=== PATIENT | female | born 1990 | race African-American/Black ===

== ENCOUNTER 2016-12-11 12:48 | Emergency (ER) | payer OTHER, SELFPAY ==
[2016-12-11 16:14] LABS: ALBUMIN 3.9 GM/DL (3.2-5.2); ALBUMIN/GLOBULIN RATIO 0.89 (1.00-1.93); ALKALINE PHOSPHATASE 58 U/L (45-117); ALT/SGPT 16 U/L (12-78); ANION GAP 11 MEQ/L (8-16); AST/SGOT 10 U/L (15-37); BILIRUBIN,DIRECT < 0.1 MG/DL (0.0-0.2); BILIRUBIN,TOTAL 0.3 MG/DL (0.2-1.0); BLOOD UREA NITROGEN 8 MG/DL (7-18); CALCIUM LEVEL 9.4 MG/DL (8.5-10.1); CARBON DIOXIDE LEVEL 26 MEQ/L (21-32); CHLORIDE LEVEL 103 MEQ/L (98-107); CREATININE FOR GFR 0.58 MG/DL (0.55-1.02); GLOMERULAR FILTRATION RATE > 60.0 (>60); GLUCOSE, FASTING 86 MG/DL (70-105); POTASSIUM SERUM 3.8 MEQ/L (3.5-5.1); SODIUM LEVEL 140 MEQ/L (136-145); TOTAL PROTEIN 8.3 GM/DL (6.4-8.2)
[2016-12-11 16:43] LABS: BASO % 0.2 % (0.0-1.0); EOS % 0.4 % (0.0-3.0); LARGE UNSTAINED CELL # 0.1 K/mm3 (0.0-0.4); LARGE UNSTAINED CELL % 1.4 % (0.0-4.0); LYMPH # 1.8 K/mm3 (1.5-6.5); LYMPH % 18.5 % (24.0-44.0); MEAN CORPUSCULAR HEMOGLOBIN 31.4 pg (27.0-33.0); MEAN CORPUSCULAR HGB CONC 34.4 g/dl (32.0-36.5); MEAN CORPUSCULAR VOLUME 91.4 fl (80.0-96.0); MONO # 0.4 K/mm3 (0.0-0.8); NEUTROPHILS # 7.4 K/mm3 (1.8-7.7); NEUTROPHILS % 75.5 % (36.0-66.0); PLATELET COUNT, AUTOMATED 193 k/mm3 (150-450); RED CELL DISTRIBUTION WIDTH 11.3 % (11.5-14.5); WHITE BLOOD COUNT 9.8 K/mm3 (4.0-10.0)
--- NOTE | 2016-12-11 17:52 | REP ---
NON-OB PELVIC ULTRASOUND: HISTORY: Right lower quadrant pain. The uterus is normal in echogenicity and size. The uterus measures 4.3 cm in transverse x 3.7 cm in AP x 8 cm in cephalocaudal dimensions. The endometrium measures 3.8 mm. The right ovary measures 2.5 x 1.3 x 2.3 cm. The left ovary measures 2.4 x 2.8 x 2.6 cm. A hemorrhagic cyst is present in the left ovary. This measures 2.2 x 1.5 x 1.9 cm. A small amount of free fluid is present in the right adnexal region. IMPRESSION: 1. 2.2 cm hemorrhagic cyst in the left ovary. 2. There is a small amount of free fluid in the right adnexal region. Signed by Corona Gonzalez MD 12/11/2016 06:05 P
--- NOTE | 2016-12-11 18:05 | EDDOCDS ---
Nurse's Notes [facility] Name: Katia Mckeon Age: 26 yrs Sex: Female : 1990 Arrival Date: 12/11/2016 Time: 12:48 Bed I5 / M5 Private MD: NO PRIMARY PHYSICIAN, . Diagnosis: Other ovarian cysts-left, hemorrhagic, 2.2 cm Presentation: 12/11 12:52 Presenting complaint: Patient states: Right sided abdominal pain for 2-3 days. Risk dwg factors: the patient reports no vaginal bleeding. Adult Sepsis Screening: The patient does not have new or worsening altered mentation. Patient's respiratory rate is less than 22. Systolic blood pressure is greater than 100. Patient has a qSOFA score of 0- Negative Sepsis Screen. Suicide/Homicide risk assessment- the patient denies having any suicidal and/or homicidal ideations and does not present with any other emotional, behavioral or mental health complaints. 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 Transition of care: patient was not received from another setting of care. 12:52 Acuity: ELVA Level 3 dwg 12:52 Method Of Arrival: Walkin/Carried/Asstd dwg Triage Assessment: 12:53 General: Appears in no apparent distress. Pain: Pain currently is 5 out of 10 on a pain dwg scale. Pt Declines HIV testing. 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 none - PMHx: none; - PSHx: none; - Social history: Smoking status: Patient states was never smoker of tobacco. No barriers to communication noted, The patient speaks fluent Bulgarian. - Family history: Not pertinent. - : The pt / caregiver states he / she is not on anticoagulants. Home medication list is obtained from the patient. - Exposure Risk Screening:: None identified. Screenin:01 Screening information is obtained from the patient. Fall risk: No risks identified. kc3 Assistance ADL's: requires no assistance with activities of daily living. Abuse/DV Screen: The patient / caregiver reports he/she is: not in a situation that causes fear, pain or injury. Nutritional screening: No deficits noted. Advance Directives: Currently, there is no health care proxy. home support is adequate. Assessment: 16:21 Adult Sepsis Screening: The patient does not have new or worsening altered mentation. dsf Patient's respiratory rate is less than 22. Systolic blood pressure is greater than 100. Patient has a qSOFA score of 0- Negative Sepsis Screen. General: Appears in no apparent distress, comfortable, Behavior is appropriate for age, cooperative. Pain: Location: right lower quadrant Pain currently is 7 out of 10 on a pain scale. Quality of pain is described as sharp. Neurological: Level of Consciousness is awake, alert, Oriented to person, place, time. Cardiovascular: Capillary refill < 3 seconds Heart tones S1 S2 present. Respiratory: Airway is patent Respiratory effort is even, unlabored, Respiratory pattern is regular, symmetrical, Breath sounds are clear bilaterally. GI: Abdomen is flat, Bowel sounds present X 4 quads. Abd is soft X 4 quads Abd is tender to palpation in right lower quadrant Denies nausea. Derm: Skin is pink, warm & dry. 16:34 Reassessment: IV infusing - no infiltration noted.. kcs 18:01 General: Appears in no apparent distress, comfortable, Behavior is appropriate for age, kc3 cooperative. Pain: Location: abdomen. Neurological: Level of Consciousness is awake, alert, obeys commands, Oriented to person, place, time. Respiratory: Respiratory effort is even, unlabored. Derm: Skin is pink, warm & dry. Vital Signs: 12:50 BP 106 / 69; Pulse 108; Resp 16; Temp 99.4(O); Pulse Ox 100% ; Weight 61.23 kg (M); cmb Height 66 in. (167.64 cm) (M); Pain 5/10; 16:33 BP 110 / 74; Pulse 98; Resp 18; Temp 98.8; Pulse Ox 99% ; Pain 4/10; jam1 18:01 BP 94 / 61; Pulse 61; Resp 18; Temp 99.2(O); Pulse Ox 100% on R/A; Pain 7/10; kc3 12:50 Body Mass Index 21.79 (61.23 kg, 167.64 cm) cmb Vitals: 12:50 Log In Time: December 11, 2016 at 12:48. cmb ED Course: 12:49 Patient visited by Linda Rico. cmb 12:49 Patient moved to Waiting cmb 12:50 NO PRIMARY PHYSICIAN, . is Private Physician. cmb 12:52 Patient moved to Pre RCE cmb 12:53 Triage Initiated dwg 14:58 Herbert Talbot,YESSENIA is Primary Nurse. mb9 14:58 Patient moved to I5 / mb9 14:59 Cally West FNP is [facility]. le 15:07 Patient visited by Cally West FNP. le 15:07 Patient visited by Cally West FNP. le 15:10 Inserted saline lock: 20 gauge in left antecubital area The patient tolerated the kcs procedure well. 15:47 Basic Metabolic Profile Sent. kcs 15:47 CBC with Diff Sent. kcs 15:47 Lipase Sent. kcs 15:47 Urinalysis Sent. kcs 16:13 Assist provider with pelvic exam: Set up pelvic tray. Specimens sent to lab. Performed dsf by Cally CARABALLO Patient tolerated well. 16:19 GC & Chlamydia Amplification Sent. dsf 16:19 Wet Prep Sent. dsf 16:22 Patient visited by Enriqueta Rojas RN. dsf 17:23 Patient visited by Ivette Guzmán RN. kc3 17:48 Addy Ortez MD is Referral Physician. le 17:48 [facility] Payment Agreement was scanned into [employer] and attached to record. ks16 17:54 Patient name changed from Winta\S\\S\Mebrahti\S\ to Winta\S\ \S\Mebrahti. EDMS 18:02 The patient / caregiver is instructed regarding the plan of care and ED course. kc3 Administered Medications: 15:55 Drug: NS 0.9% 1000 ml [sodium chloride 0.9 % intravenous solution] Route: IV; Rate: 100 kcs mL/hr; Site: left antecubital; Order Results: Lab Order: Basic Metabolic Profile; SPEC'M 12/11/16 15:43 Test: GLUCOSE, FASTING; Value: 86; Range: 70-105; Units: MG/DL; Status: F Test: BLOOD UREA NITROGEN; Value: 8; Range: 7-18; Units: MG/DL; Status: F Test: CREATININE FOR GFR; Value: 0.58; Range: 0.55-1.02; Units: MG/DL; Status: F Test: GLOMERULAR FILTRATION RATE; Value: > 60.0; Range: >60; Status: F Test: SODIUM LEVEL; Value: 140; Range: 136-145; Units: MEQ/L; Status: F Test: POTASSIUM SERUM; Value: 3.8; Range: 3.5-5.1; Units: MEQ/L; Status: F Test: CHLORIDE LEVEL; Value: 103; Range: 98-107; Units: MEQ/L; Status: F Test: CARBON DIOXIDE LEVEL; Value: 26; Range: 21-32; Units: MEQ/L; Status: F Test: ANION GAP; Value: 11; Range: 8-16; Units: MEQ/L; Status: F Test: CALCIUM LEVEL; Value: 9.4; Range: 8.5-10.1; Units: MG/DL; Status: F Test Note: ; Units are mL/min/1.73 m2 Chronic Kidney Disease Staging per NKF: Stage I & II GFR >=60 Normal to Mildly Decreased Stage III GFR 30-59 Moderately Decreased Stage IV GFR 15-29 Severely Decreased Stage V GFR <15 Very Little GFR Left ESRD GFR <15 on PLATE DEVELOPER Lab Order: CBC with Diff; SPEC'M 12/11/16 15:43 Test: WHITE BLOOD COUNT; Value: 9.8; Range: 4.0-10.0; Units: K/mm3; Status: F Test: RED BLOOD COUNT; Value: 4.11; Range: 4.00-5.40; Units: M/mm3; Status: F Test: HEMOGLOBIN; Value: 12.9; Range: 12.0-16.0; Units: g/dl; Status: F Test: HEMATOCRIT; Value: 37.6; Range: 36.0-47.0; Units: %; Status: F Test: MEAN CORPUSCULAR VOLUME; Value: 91.4; Range: 80.0-96.0; Units: fl; Status: F Test: MEAN CORPUSCULAR HEMOGLOBIN; Value: 31.4; Range: 27.0-33.0; Units: pg; Status: F Test: MEAN CORPUSCULAR HGB CONC; Value: 34.4; Range: 32.0-36.5; Units: g/dl; Status: F Test: RED CELL DISTRIBUTION WIDTH; Value: 11.3; Range: 11.5-14.5; Abnormal: Below low normal; Units: %; Status: F Test: PLATELET COUNT, AUTOMATED; Value: 193; Range: 150-450; Units: k/mm3; Status: F Test: NEUTROPHILS %; Value: 75.5; Range: 36.0-66.0; Abnormal: Above high normal; Units: %; Status: F Test: LYMPH %; Value: 18.5; Range: 24.0-44.0; Abnormal: Below low normal; Units: %; Status: F Test: MONO %; Value: 4.0; Range: 0.0-5.0; Units: %; Status: F Test: EOS %; Value: 0.4; Range: 0.0-3.0; Units: %; Status: F Test: BASO %; Value: 0.2; Range: 0.0-1.0; Units: %; Status: F Test: LARGE UNSTAINED CELL %; Value: 1.4; Range: 0.0-4.0; Units: %; Status: F Test: NEUTROPHILS #; Value: 7.4; Range: 1.8-7.7; Units: K/mm3; Status: F Test: LYMPH #; Value: 1.8; Range: 1.5-6.5; Units: K/mm3; Status: F Test: MONO #; Value: 0.4; Range: 0.0-0.8; Units: K/mm3; Status: F Test: EOS #; Value: 0.0; Range: 0.0-0.50; Units: K/mm3; Status: F Test: BASO #; Value: 0.0; Range: 0.0-0.2; Units: K/mm3; Status: F Test: LARGE UNSTAINED CELL #; Value: 0.1; Range: 0.0-0.4; Units: K/mm3; Status: F Lab Order: Lipase; SPEC'M 12/11/16 15:43 Test: LIPASE; Value: 102; Range: 73-393; Units: U/L; Status: F Lab Order: Liver Profile; SPEC'M 12/11/16 15:43 Test: AST/SGOT; Value: 10; Range: 15-37; Abnormal: Below low normal; Units: U/L; Status: F Test: ALT/SGPT; Value: 16; Range: 12-78; Units: U/L; Status: F Test: ALKALINE PHOSPHATASE; Value: 58; Range: 45-117; Units: U/L; Status: F Test: BILIRUBIN,TOTAL; Value: 0.3; Range: 0.2-1.0; Units: MG/DL; Status: F Test: BILIRUBIN,DIRECT; Value: < 0.1; Range: 0.0-0.2; Units: MG/DL; Status: F Test: TOTAL PROTEIN; Value: 8.3; Range: 6.4-8.2; Abnormal: Above high normal; Units: GM/DL; Status: F Test: ALBUMIN; Value: 3.9; Range: 3.2-5.2; Units: GM/DL; Status: F Test: ALBUMIN/GLOBULIN RATIO; Value: 0.89; Range: 1.00-1.93; Abnormal: Below low normal; Status: F Lab Order: Urinalysis; SPEC'M 12/11/16 15:43 Test: APPEARANCE, URINE; Value: CLEAR; Range: CLEAR; Status: F Test: COLOR, URINE; Value: YELLOW; Range: YELLOW; Status: F Test: PH,URINE; Value: 6.0; Range: 5.0-9.0; Units: UNITS; Status: F Test: SPECIFIC GRAVITY URINE AUTO; Value: 1.020; Range: 1.002-1.035; Status: F Test: PROTEIN, URINE AUTO; Value: NEGATIVE; Range: NEGATIVE; Units: mg/dL; Status: F Test: GLUCOSE, URINE (UA) AUTO; Value: NEGATIVE; Range: NEGATIVE; Units: mg/dL; Status: F Test: KETONE, URINE AUTO; Value: NEGATIVE; Range: NEGATIVE; Units: mg/dL; Status: F Test: UROBILINOGEN, URINE AUTO; Value: 0.2; Range: 0.0-2.0; Units: mg/dL; Status: F Test: BILIRUBIN, URINE AUTO; Value: NEGATIVE; Range: NEGATIVE; Status: F Test: NITRITE, URINE AUTO; Value: NEGATIVE; Range: NEGATIVE; Status: F Test: LEUKOCYTE ESTERASE, URINE AUTO; Value: NEGATIVE; Range: NEGATIVE; Status: F Test: BLOOD, URINE BLOOD; Value: NEGATIVE; Range: NEGATIVE; Status: F Test: WBC, URINE AUTO; Value: 2; Range: 0-3; Units: /HPF; Status: F Test: RBC, URINE AUTO; Value: 2; Range: 0-3; Units: /HPF; Status: F Test: BACTERIA, URINE AUTO; Value: 1+; Range: NEGATIVE; Abnormal: Above high normal; Status: F Test: SQUAMOUS EPITHELIAL CELL UR AU; Value: 1; Range: 0-6; Units: /HPF; Status: F Test: MUCUS, URINE; Value: MODERATE; Range: NEGATIVE; Status: F Test: HYALINE CAST, URINE AUTO; Value: 0; Range: 0-1; Units: /LPF; Status: F Lab Order: Wet Prep; SPEC'M 12/11/16 16:15 Test: WET PREP; Value: WET PREP RESULT; Status: F Test: WET PREP; Value: MANY EPITHELIAL CELLS PRESENT; Status: F Test: WET PREP; Value: FEW WBC; Status: F Test: WET PREP; Value: MANY LONG RODS PRESENT; Status: F Outcome: 17:48 Discharge ordered by Provider. le 18:02 Discharge Assessment: Patient awake, alert and oriented x 3. No cognitive and/or kc3 functional deficits noted. Patient verbalized understanding of disposition instructions. patient administered narcotics - no. The following High Risk Discharge criteria are identified: None. Condition: stable. Discharge instructions given to patient, Instructed on discharge instructions, follow up and referral plans. medication usage, Demonstrated understanding of instructions, medications, Pt was receptive of discharge instructions/ teaching. Prescriptions given X 2. Ultrasound Study completed. Property :Personal belongings accompany Pt. 18:04 Patient left the ED. kc3 Signatures: Dispatcher [employer] EDMS Naz Villela RN Magdi Roca RN RN dwg Murphy, Jane, DOCUMENTATION SUPERVISOR DOCUMENTATION SUPERVISOR [email or web address] Cally West, MANAGER OF BUSINESS MANAGER OF BUSINESS Enriqueta Linares RN RN Linda Mora Michael,RN RN [email or web address] Ivette Guzmán RN RN kc3 Katherin Velasco, Reg Reg ks16 Corrections: (The following items were deleted from the chart) 18:03 18:02 Discharge Assessment: Patient awake, alert and oriented x 3. No cognitive and/or kc3 functional deficits noted. Patient verbalized understanding of disposition instructions. patient administered narcotics - kc3 MTDD
--- NOTE | 2016-12-11 18:05 | EDDOCDS ---
Physician Documentation [facility] Name: Katia Mckeon Age: 26 yrs Sex: Female : 1990 Arrival Date: 12/11/2016 Time: 12:48 Bed I5 / M5 Private MD: NO PRIMARY PHYSICIAN, . Disposition: 12/11 17:53 Critical Care: Critical care not applicable. le Disposition: 12/11/16 17:48 Discharged to Home/Self Care. Impression: Other ovarian cysts - left, hemorrhagic, 2.2 cm. - Condition is Stable. - Discharge Instructions: Ovarian Cyst. - Prescriptions for Naprosyn 500 mg Oral Tablet - take 1 tablet by ORAL route 2 times per day take with food; 30 tablet. [place] 5- 325 mg Oral Tablet - take 1 tablet by ORAL route every 6 hours As needed MDD: 4 tabs; 20 tablet. - Medication Reconciliation, Local Pharmacy Hours form. - Follow up: Addy Ortez MD; When: Call to arrange an appointment; Reason: Recheck today's complaints, Continuance of care. - Problem is new. - Symptoms have improved. - Notes: Return to the ED for severe pain, fever, heavy vaginal bleeding, dizziness or any other concerns Historical: - Allergies: no known allergies; - Home Meds: 1. none - PMHx: none; - PSHx: none; - Social history: Smoking status: Patient states was never smoker of tobacco. No barriers to communication noted, The patient speaks fluent [place]. - Family history: Not pertinent. - : The pt / caregiver states he / she is not on anticoagulants. Home medication list is obtained from the patient. - Exposure Risk Screening:: None identified. 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 (167.64 cm) (M); Pain 5/10; 16:33 BP 110 / 74; Pulse 98; Resp 18; Temp 98.8; Pulse Ox 99% ; Pain 4/10; jam1 18:01 BP 94 / 61; Pulse 61; Resp 18; Temp 99.2(O); Pulse Ox 100% on R/A; Pain 7/10; kc3 12:50 Body Mass Index 21.79 (61.23 kg, 167.64 cm) cmb MDM: 15:14 NS 0.9% 1000 ml IV at 100 mL/hr continuous ordered. le 15:14 IV Saline Lock ordered. le 15:14 Undress patient appropriately for examination ordered. le 15:14 Set up pelvic ordered. le 15:15 Basic Metabolic Profile Ordered. EDMS 15:15 CBC with Diff Ordered. EDMS 15:15 Lipase Ordered. EDMS 15:15 Liver Profile Ordered. EDMS 15:15 Urinalysis Ordered. EDMS 15:15 Wet Prep Ordered. EDMS 15:15 GC & Chlamydia Amplification Ordered. EDMS 15:16 NOTHING BY MOUTH+DIET ordered. EDMS 16:18 -US Pelvic Non-Ob Complete Ordered. EDMS 16:18 DUPLEX SCAN LIMITED (DOPPLER)+US Ordered. EDMS 16:51 Transvaginal NON- US Ordered. EDMS 16:56 CBC with Diff Reviewed. le 16:56 Liver Profile Reviewed. le 16:56 Urinalysis Reviewed. le 16:56 Basic Metabolic Profile Reviewed. le 16:56 Lipase Reviewed. le 16:56 Wet Prep Reviewed. le 17:43 Financial registration complete. b 17:48 [facility] Payment Agreement was scanned into [employer] and attached to record. [email or web address] Administered Medications: 15:55 Drug: NS 0.9% 1000 ml [sodium chloride 0.9 % intravenous solution] Route: IV; Rate: 100 kcs mL/hr; Site: left antecubital; Signatures: Dispatcher [employer] Magdi Huddleston RN RN dwg Westcott, Lisa, FNP FACSIMILE OPERATOR Ivette Donovan RN RN [id number] Angy Velarde gjb Katherin Velasco, Reg Reg ks16 Naz Villela RN kcs The chart was reviewed and I authenticate all verbal orders and agree with the evaluation and treatment provided.Attachments: 17:48 [facility] Payment Agreement ks16 MTDD
--- NOTE | 2016-12-13 19:05 | EDDOCDS ---
Physician Documentation [facility] Name: Katia Mckeon Age: 26 yrs Sex: Female : 1990 Arrival Date: 12/11/2016 Time: 12:48 Bed I5 / M5 Private MD: NO PRIMARY PHYSICIAN, . Disposition: 12/11 17:53 Critical Care: Critical care not applicable. le Disposition: 12/11/16 17:48 Discharged to Home/Self Care. Impression: Other ovarian cysts - left, hemorrhagic, 2.2 cm. - Condition is Stable. - Discharge Instructions: Ovarian Cyst. - Prescriptions for Naprosyn 500 mg Oral Tablet - take 1 tablet by ORAL route 2 times per day take with food; 30 tablet. [place] 5- 325 mg Oral Tablet - take 1 tablet by ORAL route every 6 hours As needed MDD: 4 tabs; 20 tablet. - Medication Reconciliation, Local Pharmacy Hours form. - Follow up: Addy Ortez MD; When: Call to arrange an appointment; Reason: Recheck today's complaints, Continuance of care. - Problem is new. - Symptoms have improved. - Notes: Return to the ED for severe pain, fever, heavy vaginal bleeding, dizziness or any other concerns Historical: - Allergies: no known allergies; - Home Meds: 1. none - PMHx: none; - PSHx: none; - Social history: Smoking status: Patient states was never smoker of tobacco. No barriers to communication noted, The patient speaks fluent Tongan. - Family history: Not pertinent. - : The pt / caregiver states he / she is not on anticoagulants. Home medication list is obtained from the patient. - Exposure Risk Screening:: None identified. 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 (167.64 cm) (M); Pain 5/10; 16:33 BP 110 / 74; Pulse 98; Resp 18; Temp 98.8; Pulse Ox 99% ; Pain 4/10; jam1 18:01 BP 94 / 61; Pulse 61; Resp 18; Temp 99.2(O); Pulse Ox 100% on R/A; Pain 7/10; kc3 12:50 Body Mass Index 21.79 (61.23 kg, 167.64 cm) cmb MDM: 15:14 NS 0.9% 1000 ml IV at 100 mL/hr continuous ordered. le 15:14 IV Saline Lock ordered. le 15:14 Undress patient appropriately for examination ordered. le 15:14 Set up pelvic ordered. le 15:15 Basic Metabolic Profile Ordered. EDMS 15:15 CBC with Diff Ordered. EDMS 15:15 Lipase Ordered. EDMS 15:15 Liver Profile Ordered. EDMS 15:15 Urinalysis Ordered. EDMS 15:15 Wet Prep Ordered. EDMS 15:15 GC & Chlamydia Amplification Ordered. EDMS 15:16 NOTHING BY MOUTH+DIET ordered. EDMS 16:18 -US Pelvic Non-Ob Complete Ordered. EDMS 16:18 DUPLEX SCAN LIMITED (DOPPLER)+US Ordered. EDMS 16:51 Transvaginal NON- US Ordered. EDMS 16:56 CBC with Diff Reviewed. le 16:56 Liver Profile Reviewed. le 16:56 Urinalysis Reviewed. le 16:56 Basic Metabolic Profile Reviewed. le 16:56 Lipase Reviewed. le 16:56 Wet Prep Reviewed. le 17:43 Financial registration complete. gjb 17:48 [facility] Payment Agreement was scanned into [email or web address] and attached to record. 12/12 11:01 T-Sheet-- Draft Copy was scanned into [email or web address] and attached to record. gb Administered Medications: 12/11 15:55 Drug: NS 0.9% 1000 ml [sodium chloride 0.9 % intravenous solution] Route: IV; Rate: 100 kcs mL/hr; Site: left antecubital; Signatures: Dispatcher [employer] EDMagdi Parson RN RN dwg Barnhardt, Gloria, Reg Reg gb Cally West, ILYA CHIEF RESOURCE OFFICER Ivette Donovan RN RN kc3 Angy Velarde gjb Katherin Velasco, Reg Reg ks16 Naz Villela RN The chart was reviewed and I authenticate all verbal orders and agree with the evaluation and treatment provided.Attachments: 17:48 [facility] Payment Agreement 12/12 11:01 T-Sheet-- Draft Copy gb Chart Complete MTDD
--- NOTE | 2016-12-13 19:05 | EDDOCDS ---
Nurse's Notes [facility] Name: Katia Mckeon Age: 26 yrs Sex: Female : 1990 Arrival Date: 12/11/2016 Time: 12:48 Bed I5 / M5 Private MD: NO PRIMARY PHYSICIAN, . Diagnosis: Other ovarian cysts-left, hemorrhagic, 2.2 cm Presentation: 12/11 12:52 Presenting complaint: Patient states: Right sided abdominal pain for 2-3 days. Risk dwg factors: the patient reports no vaginal bleeding. Adult Sepsis Screening: The patient does not have new or worsening altered mentation. Patient's respiratory rate is less than 22. Systolic blood pressure is greater than 100. Patient has a qSOFA score of 0- Negative Sepsis Screen. Suicide/Homicide risk assessment- the patient denies having any suicidal and/or homicidal ideations and does not present with any other emotional, behavioral or mental health complaints. Status: Patient is not a customer service rep or dependent. Transition of care: patient was not received from another setting of care. 12:52 Acuity: ELVA Level 3 dwg 12:52 Method Of Arrival: Walkin/Carried/Asstd dwg Triage Assessment: 12:53 General: Appears in no apparent distress. Pain: Pain currently is 5 out of 10 on a pain dwg scale. Pt Declines HIV testing. 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 none - PMHx: none; - PSHx: none; - Social history: Smoking status: Patient states was never smoker of tobacco. No barriers to communication noted, The patient speaks fluent Kinyarwanda. - Family history: Not pertinent. - : The pt / caregiver states he / she is not on anticoagulants. Home medication list is obtained from the patient. - Exposure Risk Screening:: None identified. Screenin:01 Screening information is obtained from the patient. Fall risk: No risks identified. kc3 Assistance ADL's: requires no assistance with activities of daily living. Abuse/DV Screen: The patient / caregiver reports he/she is: not in a situation that causes fear, pain or injury. Nutritional screening: No deficits noted. Advance Directives: Currently, there is no health care proxy. home support is adequate. Assessment: 16:21 Adult Sepsis Screening: The patient does not have new or worsening altered mentation. dsf Patient's respiratory rate is less than 22. Systolic blood pressure is greater than 100. Patient has a qSOFA score of 0- Negative Sepsis Screen. General: Appears in no apparent distress, comfortable, Behavior is appropriate for age, cooperative. Pain: Location: right lower quadrant Pain currently is 7 out of 10 on a pain scale. Quality of pain is described as sharp. Neurological: Level of Consciousness is awake, alert, Oriented to person, place, time. Cardiovascular: Capillary refill < 3 seconds Heart tones S1 S2 present. Respiratory: Airway is patent Respiratory effort is even, unlabored, Respiratory pattern is regular, symmetrical, Breath sounds are clear bilaterally. GI: Abdomen is flat, Bowel sounds present X 4 quads. Abd is soft X 4 quads Abd is tender to palpation in right lower quadrant Denies nausea. Derm: Skin is pink, warm & dry. 16:34 Reassessment: IV infusing - no infiltration noted.. kcs 18:01 General: Appears in no apparent distress, comfortable, Behavior is appropriate for age, kc3 cooperative. Pain: Location: abdomen. Neurological: Level of Consciousness is awake, alert, obeys commands, Oriented to person, place, time. Respiratory: Respiratory effort is even, unlabored. Derm: Skin is pink, warm & dry. Vital Signs: 12:50 BP 106 / 69; Pulse 108; Resp 16; Temp 99.4(O); Pulse Ox 100% ; Weight 61.23 kg (M); cmb Height 66 in. (167.64 cm) (M); Pain 5/10; 16:33 BP 110 / 74; Pulse 98; Resp 18; Temp 98.8; Pulse Ox 99% ; Pain 4/10; jam1 18:01 BP 94 / 61; Pulse 61; Resp 18; Temp 99.2(O); Pulse Ox 100% on R/A; Pain 7/10; kc3 12:50 Body Mass Index 21.79 (61.23 kg, 167.64 cm) cmb Vitals: 12:50 Log In Time: December 11, 2016 at 12:48. cmb ED Course: 12:49 Patient visited by Linda Rico. cmb 12:49 Patient moved to Waiting cmb 12:50 NO PRIMARY PHYSICIAN, . is Private Physician. cmb 12:52 Patient moved to Pre RCE cmb 12:53 Triage Initiated dwg 14:58 Herbert Talbot,RN is Primary Nurse. mb9 14:58 Patient moved to I5 / M5 mb9 14:59 [facility] le 15:07 Patient visited by Cally West FNP. le 15:07 Patient visited by Cally West FNP. le 15:10 Inserted saline lock: 20 gauge in left antecubital area The patient tolerated the kcs procedure well. 15:47 Basic Metabolic Profile Sent. kcs 15:47 CBC with Diff Sent. kcs 15:47 Lipase Sent. kcs 15:47 Urinalysis Sent. kcs 16:13 Assist provider with pelvic exam: Set up pelvic tray. Specimens sent to lab. Performed dsf by Cally CARABALLO Patient tolerated well. 16:19 GC & Chlamydia Amplification Sent. dsf 16:19 Wet Prep Sent. dsf 16:22 Patient visited by Enriqueta Rojas,YESSENIA. dsf 17:23 Patient visited by Ivette Guzmán,YESSENIA. kc3 17:48 Addy Ortez MD is Referral Physician. le 17:48 [facility] Payment Agreement was scanned into ipDatatel and attached to record. ks16 17:54 Patient name changed from Winta\S\\S\Mebrahti\S\ to Winta\S\ \S\Mebrahti. EDMS 18:02 The patient / caregiver is instructed regarding the plan of care and ED course. kc3 18:22 -US Pelvic Non-Ob Complete Returned. EDMS 18:22 DUPLEX SCAN LIMITED (DOPPLER)+US Returned. EDMS 18:22 Transvaginal NON- US Returned. EDMS 12/12 11:01 T-Sheet-- Draft Copy was scanned into ipDatatel and attached to record. gb Administered Medications: 12/11 15:55 Drug: NS 0.9% 1000 ml [sodium chloride 0.9 % intravenous solution] Route: IV; Rate: 100 kcs mL/hr; Site: left antecubital; Order Results: Lab Order: Basic Metabolic Profile; SPEC'M 12/11/16 15:43 Test: GLUCOSE, FASTING; Value: 86; Range: 70-105; Units: MG/DL; Status: F Test: BLOOD UREA NITROGEN; Value: 8; Range: 7-18; Units: MG/DL; Status: F Test: CREATININE FOR GFR; Value: 0.58; Range: 0.55-1.02; Units: MG/DL; Status: F Test: GLOMERULAR FILTRATION RATE; Value: > 60.0; Range: >60; Status: F Test: SODIUM LEVEL; Value: 140; Range: 136-145; Units: MEQ/L; Status: F Test: POTASSIUM SERUM; Value: 3.8; Range: 3.5-5.1; Units: MEQ/L; Status: F Test: CHLORIDE LEVEL; Value: 103; Range: 98-107; Units: MEQ/L; Status: F Test: CARBON DIOXIDE LEVEL; Value: 26; Range: 21-32; Units: MEQ/L; Status: F Test: ANION GAP; Value: 11; Range: 8-16; Units: MEQ/L; Status: F Test: CALCIUM LEVEL; Value: 9.4; Range: 8.5-10.1; Units: MG/DL; Status: F Test Note: ; Units are mL/min/1.73 m2 Chronic Kidney Disease Staging per NKF: Stage I & II GFR >=60 Normal to Mildly Decreased Stage III GFR 30-59 Moderately Decreased Stage IV GFR 15-29 Severely Decreased Stage V GFR <15 Very Little GFR Left ESRD GFR <15 on SECURITY SHIFT MANAGER Lab Order: CBC with Diff; SPEC'M 12/11/16 15:43 Test: WHITE BLOOD COUNT; Value: 9.8; Range: 4.0-10.0; Units: K/mm3; Status: F Test: RED BLOOD COUNT; Value: 4.11; Range: 4.00-5.40; Units: M/mm3; Status: F Test: HEMOGLOBIN; Value: 12.9; Range: 12.0-16.0; Units: g/dl; Status: F Test: HEMATOCRIT; Value: 37.6; Range: 36.0-47.0; Units: %; Status: F Test: MEAN CORPUSCULAR VOLUME; Value: 91.4; Range: 80.0-96.0; Units: fl; Status: F Test: MEAN CORPUSCULAR HEMOGLOBIN; Value: 31.4; Range: 27.0-33.0; Units: pg; Status: F Test: MEAN CORPUSCULAR HGB CONC; Value: 34.4; Range: 32.0-36.5; Units: g/dl; Status: F Test: RED CELL DISTRIBUTION WIDTH; Value: 11.3; Range: 11.5-14.5; Abnormal: Below low normal; Units: %; Status: F Test: PLATELET COUNT, AUTOMATED; Value: 193; Range: 150-450; Units: k/mm3; Status: F Test: NEUTROPHILS %; Value: 75.5; Range: 36.0-66.0; Abnormal: Above high normal; Units: %; Status: F Test: LYMPH %; Value: 18.5; Range: 24.0-44.0; Abnormal: Below low normal; Units: %; Status: F Test: MONO %; Value: 4.0; Range: 0.0-5.0; Units: %; Status: F Test: EOS %; Value: 0.4; Range: 0.0-3.0; Units: %; Status: F Test: BASO %; Value: 0.2; Range: 0.0-1.0; Units: %; Status: F Test: LARGE UNSTAINED CELL %; Value: 1.4; Range: 0.0-4.0; Units: %; Status: F Test: NEUTROPHILS #; Value: 7.4; Range: 1.8-7.7; Units: K/mm3; Status: F Test: LYMPH #; Value: 1.8; Range: 1.5-6.5; Units: K/mm3; Status: F Test: MONO #; Value: 0.4; Range: 0.0-0.8; Units: K/mm3; Status: F Test: EOS #; Value: 0.0; Range: 0.0-0.50; Units: K/mm3; Status: F Test: BASO #; Value: 0.0; Range: 0.0-0.2; Units: K/mm3; Status: F Test: LARGE UNSTAINED CELL #; Value: 0.1; Range: 0.0-0.4; Units: K/mm3; Status: F Lab Order: Lipase; SPEC'M 12/11/16 15:43 Test: LIPASE; Value: 102; Range: 73-393; Units: U/L; Status: F Lab Order: Liver Profile; SPEC'M 12/11/16 15:43 Test: AST/SGOT; Value: 10; Range: 15-37; Abnormal: Below low normal; Units: U/L; Status: F Test: ALT/SGPT; Value: 16; Range: 12-78; Units: U/L; Status: F Test: ALKALINE PHOSPHATASE; Value: 58; Range: 45-117; Units: U/L; Status: F Test: BILIRUBIN,TOTAL; Value: 0.3; Range: 0.2-1.0; Units: MG/DL; Status: F Test: BILIRUBIN,DIRECT; Value: < 0.1; Range: 0.0-0.2; Units: MG/DL; Status: F Test: TOTAL PROTEIN; Value: 8.3; Range: 6.4-8.2; Abnormal: Above high normal; Units: GM/DL; Status: F Test: ALBUMIN; Value: 3.9; Range: 3.2-5.2; Units: GM/DL; Status: F Test: ALBUMIN/GLOBULIN RATIO; Value: 0.89; Range: 1.00-1.93; Abnormal: Below low normal; Status: F Lab Order: Urinalysis; SPEC'M 12/11/16 15:43 Test: APPEARANCE, URINE; Value: CLEAR; Range: CLEAR; Status: F Test: COLOR, URINE; Value: YELLOW; Range: YELLOW; Status: F Test: PH,URINE; Value: 6.0; Range: 5.0-9.0; Units: UNITS; Status: F Test: SPECIFIC GRAVITY URINE AUTO; Value: 1.020; Range: 1.002-1.035; Status: F Test: PROTEIN, URINE AUTO; Value: NEGATIVE; Range: NEGATIVE; Units: mg/dL; Status: F Test: GLUCOSE, URINE (UA) AUTO; Value: NEGATIVE; Range: NEGATIVE; Units: mg/dL; Status: F Test: KETONE, URINE AUTO; Value: NEGATIVE; Range: NEGATIVE; Units: mg/dL; Status: F Test: UROBILINOGEN, URINE AUTO; Value: 0.2; Range: 0.0-2.0; Units: mg/dL; Status: F Test: BILIRUBIN, URINE AUTO; Value: NEGATIVE; Range: NEGATIVE; Status: F Test: NITRITE, URINE AUTO; Value: NEGATIVE; Range: NEGATIVE; Status: F Test: LEUKOCYTE ESTERASE, URINE AUTO; Value: NEGATIVE; Range: NEGATIVE; Status: F Test: BLOOD, URINE BLOOD; Value: NEGATIVE; Range: NEGATIVE; Status: F Test: WBC, URINE AUTO; Value: 2; Range: 0-3; Units: /HPF; Status: F Test: RBC, URINE AUTO; Value: 2; Range: 0-3; Units: /HPF; Status: F Test: BACTERIA, URINE AUTO; Value: 1+; Range: NEGATIVE; Abnormal: Above high normal; Status: F Test: SQUAMOUS EPITHELIAL CELL UR AU; Value: 1; Range: 0-6; Units: /HPF; Status: F Test: MUCUS, URINE; Value: MODERATE; Range: NEGATIVE; Status: F Test: HYALINE CAST, URINE AUTO; Value: 0; Range: 0-1; Units: /LPF; Status: F Lab Order: Wet Prep; SPEC'M 12/11/16 16:15 Test: WET PREP; Value: WET PREP RESULT; Status: F Test: WET PREP; Value: MANY EPITHELIAL CELLS PRESENT; Status: F Test: WET PREP; Value: FEW WBC; Status: F Test: WET PREP; Value: MANY LONG RODS PRESENT; Status: F Lab Order: GC & Chlamydia Amplification; SPEC'M 12/11/16 16:15 Test: CHLAMYDIA DNA AMPLIFICATION; Value: NEGATIVE; Range: NEGATIVE; Status: F Test: GC DNA AMPLIFICATION; Value: NEGATIVE; Range: NEGATIVE; Status: F Radiology Order: -US Pelvic Non-Ob Complete Test: -US Pelvic Non-Ob Complete REASON FOR EXAMINATION: RLQ pain; NON-OB PELVIC ULTRASOUND:; ; HISTORY: Right lower quadrant pain.; ; The uterus is normal in echogenicity and size. The uterus measures 4.3 cm in; transverse x 3.7 cm in AP x 8 cm in cephalocaudal dimensions. The endometrium; measures 3.8 mm. The right ovary measures 2.5 x 1.3 x 2.3 cm. The left ovary; measures 2.4 x 2.8 x 2.6 cm. A hemorrhagic cyst is present in the left ovary.; This measures 2.2 x 1.5 x 1.9 cm. A small amount of free fluid is present in the; right adnexal region.; ; IMPRESSION:; ; 1. 2.2 cm hemorrhagic cyst in the left ovary.; ; 2. There is a small amount of free fluid in the right adnexal region.; ; ; Signed by; Corona Gonzalez MD 12/11/2016 06:05 P; Radiology Order: DUPLEX SCAN LIMITED (DOPPLER)+US Test: DUPLEX SCAN LIMITED (DOPPLER)+US REASON FOR EXAMINATION: Adnexal Pain r/o Torsion; NON-OB PELVIC ULTRASOUND:; ; HISTORY: Right lower quadrant pain.; ; The uterus is normal in echogenicity and size. The uterus measures 4.3 cm in; transverse x 3.7 cm in AP x 8 cm in cephalocaudal dimensions. The endometrium; measures 3.8 mm. The right ovary measures 2.5 x 1.3 x 2.3 cm. The left ovary; measures 2.4 x 2.8 x 2.6 cm. A hemorrhagic cyst is present in the left ovary.; This measures 2.2 x 1.5 x 1.9 cm. A small amount of free fluid is present in the; right adnexal region.; ; IMPRESSION:; ; 1. 2.2 cm hemorrhagic cyst in the left ovary.; ; 2. There is a small amount of free fluid in the right adnexal region.; ; ; Signed by; Corona Gonzalez MD 12/11/2016 06:05 P; Radiology Order: Transvaginal NON- US Test: Transvaginal NON- US REASON FOR EXAMINATION: EVAL UTERUS AND OVARIES; NON-OB PELVIC ULTRASOUND:; ; HISTORY: Right lower quadrant pain.; ; The uterus is normal in echogenicity and size. The uterus measures 4.3 cm in; transverse x 3.7 cm in AP x 8 cm in cephalocaudal dimensions. The endometrium; measures 3.8 mm. The right ovary measures 2.5 x 1.3 x 2.3 cm. The left ovary; measures 2.4 x 2.8 x 2.6 cm. A hemorrhagic cyst is present in the left ovary.; This measures 2.2 x 1.5 x 1.9 cm. A small amount of free fluid is present in the; right adnexal region.; ; IMPRESSION:; ; 1. 2.2 cm hemorrhagic cyst in the left ovary.; ; 2. There is a small amount of free fluid in the right adnexal region.; ; ; Signed by; Corona Gonzalez MD 12/11/2016 06:05 P; Outcome: 17:48 Discharge ordered by Provider. le 18:02 Discharge Assessment: Patient awake, alert and oriented x 3. No cognitive and/or kc3 functional deficits noted. Patient verbalized understanding of disposition instructions. patient administered narcotics - no. The following High Risk Discharge criteria are identified: None. Condition: stable. Discharge instructions given to patient, Instructed on discharge instructions, follow up and referral plans. medication usage, Demonstrated understanding of instructions, medications, Pt was receptive of discharge instructions/ teaching. Prescriptions given X 2. Ultrasound Study completed. Property :Personal belongings accompany Pt. 18:04 Patient left the ED. kc3 Signatures: Dispatcher [employer] EDMS Naz Villela, RN RN Magdi Tian RN RN dwAlaina Curtis, J2EE ANDROID DEVELOPER J2EE ANDROID DEVELOPER jam1 Janay Quevedo, Reg Reg gb Cally West, DIRECTOR OF SECURITIES AND REAL ESTATE DIRECTOR OF SECURITIES AND REAL ESTATE Enriqueta LinaresRN RN dsLinda Aguilar cmHerbert Soto,RN RN mb9 Ivette Guzmán RN RN kc3 Katherin Velasco, Reg Reg ks16 Corrections: (The following items were deleted from the chart) 18:03 18:02 Discharge Assessment: Patient awake, alert and oriented x 3. No cognitive and/or kc3 functional deficits noted. Patient verbalized understanding of disposition instructions. patient administered narcotics - kc3 Chart Complete MTDD
--- NOTE | 2016-12-13 19:06 | EDDOCDS ---
Physician Documentation [facility] Name: Katia Mckeon Age: 26 yrs Sex: Female : 1990 Arrival Date: 12/11/2016 Time: 12:48 Bed I5 / M5 Private MD: NO PRIMARY PHYSICIAN, . Disposition: 12/11 17:53 Critical Care: Critical care not applicable. le Disposition: 12/11/16 17:48 Discharged to Home/Self Care. Impression: Other ovarian cysts - left, hemorrhagic, 2.2 cm. - Condition is Stable. - Discharge Instructions: Ovarian Cyst. - Prescriptions for Naprosyn 500 mg Oral Tablet - take 1 tablet by ORAL route 2 times per day take with food; 30 tablet. Salome 5- 325 mg Oral Tablet - take 1 tablet by ORAL route every 6 hours As needed MDD: 4 tabs; 20 tablet. - Medication Reconciliation, Local Pharmacy Hours form. - Follow up: Addy Ortez MD; When: Call to arrange an appointment; Reason: Recheck today's complaints, Continuance of care. - Problem is new. - Symptoms have improved. - Notes: Return to the ED for severe pain, fever, heavy vaginal bleeding, dizziness or any other concerns Historical: - Allergies: no known allergies; - Home Meds: 1. none - PMHx: none; - PSHx: none; - Social history: Smoking status: Patient states was never smoker of tobacco. No barriers to communication noted, The patient speaks fluent Stateless. - Family history: Not pertinent. - : The pt / caregiver states he / she is not on anticoagulants. Home medication list is obtained from the patient. - Exposure Risk Screening:: None identified. 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 (167.64 cm) (M); Pain 5/10; 16:33 BP 110 / 74; Pulse 98; Resp 18; Temp 98.8; Pulse Ox 99% ; Pain 4/10; jam1 18:01 BP 94 / 61; Pulse 61; Resp 18; Temp 99.2(O); Pulse Ox 100% on R/A; Pain 7/10; kc3 12:50 Body Mass Index 21.79 (61.23 kg, 167.64 cm) cmb MDM: 15:14 NS 0.9% 1000 ml IV at 100 mL/hr continuous ordered. le 15:14 IV Saline Lock ordered. le 15:14 Undress patient appropriately for examination ordered. le 15:14 Set up pelvic ordered. le 15:15 Basic Metabolic Profile Ordered. EDMS 15:15 CBC with Diff Ordered. EDMS 15:15 Lipase Ordered. EDMS 15:15 Liver Profile Ordered. EDMS 15:15 Urinalysis Ordered. EDMS 15:15 Wet Prep Ordered. EDMS 15:15 GC & Chlamydia Amplification Ordered. EDMS 15:16 NOTHING BY MOUTH+DIET ordered. EDMS 16:18 -US Pelvic Non-Ob Complete Ordered. EDMS 16:18 DUPLEX SCAN LIMITED (DOPPLER)+US Ordered. EDMS 16:51 Transvaginal NON- US Ordered. EDMS 16:56 CBC with Diff Reviewed. le 16:56 Liver Profile Reviewed. le 16:56 Urinalysis Reviewed. le 16:56 Basic Metabolic Profile Reviewed. le 16:56 Lipase Reviewed. le 16:56 Wet Prep Reviewed. le 17:43 Financial registration complete. gjb 17:48 [facility] Payment Agreement was scanned into Doctor Evidence and attached to record. 12/12 11:01 T-Sheet-- Draft Copy was scanned into Doctor Evidence and attached to record. gb Administered Medications: 12/11 15:55 Drug: NS 0.9% 1000 ml [sodium chloride 0.9 % intravenous solution] Route: IV; Rate: 100 kcs mL/hr; Site: left antecubital; Signatures: Dispatcher [employer] EDMagdi Parson RN RN dwg Barnhardt, Gloria, Reg Reg gb Cally West, ILYA RADIO ASSEMBLER Ivette Donovan RN RN kc3 Angy Velarde gjb Katherin Velasco, Reg Reg [id number] Naz Villela RN The chart was reviewed and I authenticate all verbal orders and agree with the evaluation and treatment provided.Attachments: 17:48 [facility] Payment Agreement 12/12 11:01 T-Sheet-- Draft Copy gb Chart Complete MTDD
== END 2016-12-11 18:04 | disposition home or self-care (01) ==
LOC: M ED 12:48
DX: N83.209 Unspecified ovarian cyst, unspecified side (principal); R10.31 Right lower quadrant pain